=== PATIENT | male | born 1940 | race Caucasian/White ===

== ENCOUNTER 2022-01-05 10:37 | Emergency (ER) | payer OTHER ==
[2022-01-05] MEDS ORDERED: Boostrix 0.5 ML (Tdap) VIAL ONE (11:14)
[2022-01-05] MEDS ORDERED: Lidocaine 1% w/Epinephrine 1:100K 20 ML VIAL ONE (11:14)
[2022-01-05] MEDS ORDERED: Sulfameth/Trimethoprim DS 800-160mg TAB ONE (11:58)
[2022-01-05] MEDS ORDERED: Cephalexin 250 MG CAP ONE (11:59)
== END 2022-01-05 12:06 | disposition home or self-care (01) ==
LOC: BURERS 10:37
DX: L02.413 Cutaneous abscess of right upper limb (principal); L03.113 Cellulitis of right upper limb; I10 Essential (primary) hypertension; F17.220 Nicotine dependence, chewing tobacco, uncomplicated; Z23 Encounter for immunization
CPT/HCPCS: 10060; 90471; 90715